=== PATIENT | female | born 1995 | race Caucasian/White ===

== ENCOUNTER 2022-03-16 11:44 | Emergency (ER) | payer OTHER ==
[~2022-03-16] VITALS: Ht 170.2 cm; Wt 64.4 kg
--- NOTE | 2022-03-16 13:48 | NUR ---
Gave pt d/c instructions, pt verbalized understanding.
== END 2022-03-16 14:03 | disposition home or self-care (01) ==
LOC: ER 11:44
DX: M79.605 Pain in left leg (principal)
CPT/HCPCS: A4663